=== PATIENT | female | born 1950 | race Caucasian/White ===

== ENCOUNTER 2020-04-13 16:20 | Emergency (ER) | payer OTHER, SELFPAY ==
[2020-04-13 16:26] VITALS: BP 181/84; PULSE 108; RESP 12; TEMP 35.9; O2SAT 98; BMI 19.3
[2020-04-13] MEDS: SODIUM CHLORIDE 0.9% 1,000 ML 1000 ML IV (17:40)
[2020-04-13 18:02] LABS: Add Manual Diff / Slide Review NO; Basophils Absolute Auto 100 /uL (0-100); Basophils Percent Auto 0.9 % (0-2); Eosinophils Absolute Auto 0 /uL (0-450); Eosinophils Percent Auto 0.4 % (2-4); Hematocrit 40.6 % (36-46); Lymphocytes Absolute Auto 1200 /uL (1100-4500); Lymphocytes Percent Auto 18.1 % (25-40); Mean Corpuscular HGB Conc 34.4 % (30-36); Mean Corpuscular Hemoglobin 30.8 PG (26-34); Mean Corpuscular Volume 89.6 fL (80-100); Monocytes Absolute Auto 400 /uL (0-900); Monocytes Percent Auto 5.9 % (3-14); Neutrophils Absolute Auto 5000 /uL (1500-7000); Neutrophils Percent Auto 74.7 % (50-75); Platelet Count 214 X10^3/uL (150-400); Red Blood Cell Count 4.53 X10^6/uL (4.0-5.2); Red Cell Distribution Width 12.9 % (11.6-14.8); White Blood Cell Count 6.7 X10^3/uL (4.5-11.0)
[2020-04-13 18:17] LABS: Prothrombin Time 11.5 SECONDS (10.1-12.7)
[2020-04-13 18:28] LABS: Alanine Aminotransferase 17 IU/L (<35); Albumin 4.5 g/dL (3.5-5.0); Albumin Globulin Ratio 1.4 (1.0-2.8); Alkaline Phosphatase 76 U/L (38-126); Aspartate Aminotransferase 26 IU/L (14-36); BUN Creatinine Ratio 22.9 (6-22); Bilirubin Total 0.4 mg/dL (0.2-1.3); Blood Urea Nitrogen 19 mg/dL (7-17); Calcium 9.5 mg/dL (8.4-10.2); Carbon Dioxide 27 mmol/L (22-32); Chloride 104 mmol/L (98-107); Estimated Glomerular Filt Rate > 60.0 mL/min (>60); Globulin 3.2 g/dL (1.7-4.1); Glucose 105 mg/dL (80-110); HEMOLYSIS < 15 (0-50); Potassium 4.2 mmol/L (3.4-5.1); Sodium 137 mmol/L (137-145); Total Protein 7.7 g/dL (6.3-8.2)
[2020-04-13 18:30] VITALS: BP 156/73; PULSE 89; RESP 12; O2SAT 98
--- NOTE | 2020-04-13 18:32 | ED_ITS ---
HPI - Headache General Chief Complaint: Headache Stated Complaint: HEAD ACHE NUMB TOUNGE Time Seen by Provider: 04/13/20 17:23 Source: patient Mode of arrival: Ambulatory Limitations: no limitations History of Present Illness HPI Narrative: 69F non smoker with history of hyperlipidemia presents with the chief complaint of a brief episode of right side tongue upon waking this morning at about 8:00 a.m.. She states that it was there upon waking and lasted about 1 hour. She denies any other neurologic symptoms whatsoever over the course of the day such as dizziness, lightheadedness, blurred vision, or unilateral numbness, weakness or tingling. She has had no chest pain or shortness of breath nor nausea, vomiting or diarrhea. She denies any abdominal pain. She is otherwise well and free of complaint. She denies any history of the same. She has had no recent injury or trauma. She denies any dietary or medication change Related Data Previous Rx's Medication Instructions Recorded LOVASTATIN (MEVACOR) 20 mg PO Q DAY #30 05/17/12 sulfamethoxazole-trimethoprim 1 tab PO BID #14 tab 11/24/12 Allergies Allergy/AdvReac Type Severity Reaction Status Date / Time AMOXICILLIN Allergy Mild THROAT Uncoded 04/13/20 16:33 TIGHTENING UP Review of Systems Constitutional Constitutional: Denies chills, Denies fatigue, Denies fever(s), Denies frequent falls, Denies lethargy and Denies weakness Eyes Eyes: Denies change in vision, Denies eye discharge, Denies irritation and Denies loss of vision ENT Ears, Nose, Mouth, and Throat: Denies change in voice, Denies dizziness, Denies neck pain, Denies sore throat and Denies throat swelling Cardiovascular Cardiovascular: Denies chest pain, Denies irregular heart rhythm, Denies lightheadedness, Denies palpitations, Denies dyspnea, Denies dyspnea on exertion and Denies orthopnea Respiratory Respiratory: Denies cough, Denies dyspnea, Denies dyspnea on exertion and Denies wheezing Gastrointestinal Gastrointestinal: Denies abdominal pain, Denies change in bowel habits, Denies diarrhea, Denies nausea and Denies vomiting Musculoskeletal Musculoskeletal: Denies neck pain and Denies numbness Integumentary/Breasts Skin/Breast: Denies pruritus, Denies erythema, Denies rash and Denies wounds Neurologic Neurologic: Denies behavioral changes, Denies confusion, Denies dizziness, Denies frequent falls, Denies loss of vision, Denies numbness, Reports sensory deficit and Denies weakness Psychiatric Psychiatric: Denies anxiety, Denies behavioral changes, Denies confusion, Denies depression, Denies homicidal ideation and Denies suicidal ideation Endocrine Endocrine: Denies fatigue, Denies flushing and Denies palpitations Hematologic/Lymphatic Hematologic/Lymphatic: Denies easy bruising Allergic/Immunologic Allergic/Immunologic: Denies urticaria, Denies throat swelling and Denies wheezing Patient History Social History Smoking Status: Never smoker Smoking Status: Never smoker Substance Use Type: does not use Exam Narrative Exam Narrative: GENERAL: [69] year old patient appears stated age. Well-nour ished, well-developed patient, in mild distress. HEAD: Atraumatic. Normocephalic. EYES: Pupils equal round and reactive. Extraocular motions intact. No scleral icterus. No injection or drainage. ENT: Nose without bleeding, purulent drainage. Throat without erythema, tonsillar hypertrophy or exudate. Airway patent. NECK: Trachea midline. Non tender CARDIOVASCULAR: Regular rate and rhythm without murmurs, gallops, or rubs. RESPIRATORY: Clear to auscultation. Breath sounds equal bilaterally. No wheezes, rales, or rhonchi. GASTROINTESTINAL: Abdomen soft, non-tender, nondistended. EXTREMITIES: No edema or joint tenderness. BACK: Nontender without deformity or crepitance. No flank tenderness. NEURO: AOx3. SKIN: No rash or erythema of visible areas NIH Stroke Scale 1a. LOC: Patient is alert and keenly responsive (0) 1b. LOC Questions: Patient answers both LOC questions accurately (0) 1c. LOC Commands: Patient performs both tasks correctly (0) 2. Best Gaze: Normal (0) 3. Visual: No visual loss (0) 4. Facial palsy: Normal symmetrical movements (0) 5. Motor arm: No drift (0) 6. Motor leg: No drift (0) 7. Limb ataxia: Absent (0) 8. Sensory: Normal (0) 9. Best language: No aphasia; normal (0) 10. Dysarthria: Normal (0) 11. Extinction and inattention: No abnormality (0) NIHSS: 0 Initial Vital Signs Initial Vital Signs: Vital Signs Temperature 96.6 F L 04/13/20 16:26 Pulse Rate 108 H 04/13/20 16:26 Respiratory Rate 12 04/13/20 16:26 Blood Pressure 181/84 H 04/13/20 16:26 Pulse Oximetry 98 04/13/20 16:26 Course Course Course Narrative: patient refused MRI. discussed very low likelihood of stroke with patient. Shared decision making results in decision to go home, follow up close with her PCP, return for recurrence or other neuro symptoms Orders Ordered: ED Orders 04/13/20 17:32 CT head/brain wo con Stat EKG-12 Lead Stat 04/13/20 17:45 Complete Blood Count AUTO DIFF Stat Comprehensive Metabolic Panel Stat Prothrombin Time INR Stat Discontinued Medications Sodium Chloride (Normal Saline 0.9%) 1,000 mls @ 1,000 mls/hr IV BOLUS ONE Stop: 04/13/20 18:27 Vital Signs Vital signs: Vital Signs - 8 hr 04/13/20 16:26 Temperature 96.6 F L Pulse Rate 108 H Respiratory Rate 12 Blood Pressure 181/84 H Pulse Oximetry 98 MDM - Headache Lab Data Result diagrams: 04/13/20 17:45 04/13/20 17:45 Labs: Lab Results 04/13/20 04/13/20 04/13/20 Range/Units 17:45 17:45 17:45 WBC 6.7 (4.5-11.0) X10^3/uL RBC 4.53 (4.0-5.2) X10^6/uL Hgb 14.0 (12.0-16.0) g/dL Hct 40.6 (36-46) % MCV 89.6 (80-100) fL MCH 30.8 (26-34) PG MCHC 34.4 (30-36) % RDW 12.9 (11.6-14.8) % Plt Count 214 (150-400) X10^3/uL Neut % (Auto) 74.7 (50-75) % Lymph % (Auto) 18.1 L (25-40) % Victoria % (Auto) 5.9 (3-14) % Eos % (Auto) 0.4 L (2-4) % Baso % (Auto) 0.9 (0-2) % Neut # (Auto) 5000 (8071-0390) /uL Lymph # (Auto) 1200 (6374-8052) /uL Victoria # (Auto) 400 (0-900) /uL Eos # (Auto) 0 (0-450) /uL Baso # (Auto) 100 (0-100) /uL PT 11.5 (10.1-12.7) SECONDS INR 1.0 (0.9-1.3) Sodium 137 (137-145) mmol/L Potassium 4.2 (3.4-5.1) mmol/L Chloride 104 (98-107) mmol/L Carbon Dioxide 27 (22-32) mmol/L BUN 19 H (7-17) mg/dL Creatinine 0.83 (0.52-1.04) mg/dL Estimated GFR > 60.0 (>60) mL/min BUN/Creatinine Ratio 22.9 H (6-22) Glucose 105 (80-110) mg/dL Calcium 9.5 (8.4-10.2) mg/dL Total Bilirubin 0.4 (0.2-1.3) mg/dL AST 26 (14-36) IU/L ALT 17 (<35) IU/L Alkaline Phosphatase 76 (38-126) U/L Total Protein 7.7 (6.3-8.2) g/dL Albumin 4.5 (3.5-5.0) g/dL Globulin 3.2 (1.7-4.1) g/dL Albumin/Globulin Ratio 1.4 (1.0-2.8) Discharge Plan Departure Patient Disposition: Home Clinical Impression: Paresthesia of tongue Instructions: DI for Numbness/Tingling Activity Restrictions/Additional Instructions: *You have been diagnosed with [brief episode of tongue paresthesia] *What to do: *Take medications as directed *Follow up with your primary care provider in 2-3 days, call for an flakita ointment. Let them know you were seen in the Emergency Department and that we ask that you be seen in follow up *Return to ER if you should have any new, worsening or concerning symptoms, such as [ recurrence of symptoms, development of other neurologic symptoms such as numbness, tingling, extremity weakness or other bothersome symptoms] Prescriptions: No Action LOVASTATIN (MEVACOR) 20 mg PO Q DAY Qty: 30 RF: 2 sulfamethoxazole-trimethoprim 800 MG/160 MG tablet 1 tab PO BID Qty: 14 RF: 0
== END 2020-04-13 18:45 | disposition home or self-care (01) ==
PROVIDERS: Emergency Provider Emergency Medicine
DX: R44.8 Other symptoms and signs involving general sensations and perceptions (principal); K14.8 Other diseases of tongue; R07.9 Chest pain, unspecified
CPT/HCPCS: 80053; 85025; 85610; 93005; 93010; 99283; 99284

== ENCOUNTER 2020-05-19 12:12 | Emergency (ER) | payer OTHER, SELFPAY ==
[2020-05-19 12:15] VITALS: BP 159/75; PULSE 97; RESP 15; TEMP 37.2; O2SAT 98
--- NOTE | 2020-05-19 12:31 | PC.NURSE ---
Pt states that in the past she was taking a lot of Ibuprofen for neck pain and the R side of her kati became numb. Pt came into the ER at that time and was worked up and sent home. Pt had stayed away from Ibuprofen since until yesterday and took two doses and then noticed the L side of her tongue became swollen and numb at 0930. Tongue has since become less swollen and almost back to baseline per pt report, no airway impairment. L side of tongue continues to feel numb
[2020-05-19 13:00] VITALS: BP 118/58; PULSE 68; O2SAT 97
--- NOTE | 2020-05-19 13:17 | ED.NEUROSD ---
HPI - Neuro Symptoms/Deficit General Chief Complaint: Neuro Symptoms/Deficit Stated Complaint: LEFT SIDE NUMB TOUNGE Time Seen by Provider: 05/19/20 12:39 Source: patient Mode of arrival: Ambulatory Limitations: no limitations History of Present Illness HPI Narrative: Patient is a 70-year-old female who presents with left tongue numbness and swelling. She states that this morning she noticed some left tongue numbness and swelling. She took a picture of it is obviously swollen she at no time had any difficulty breathing. He says that this actually happened before in March. She is post have an MRI and follow-up with Neurology he did not really have any other stroke like symptoms. No difficulty speaking no weakness numbness or tingling of extremities or face. She says that her tetanus feeling better I no longer see any swelling of her tongue. She thinks that she has been exposed to some new things but she is not sure what. She has 1 spot skin rash on her right leg that has been there for some time and seems to be improving she is post to follow up with Dermatology about it, but denies any other rash or itching. Onset (ago): hour(s) Location: other (Left tongue) Related Data Previous Rx's Medication Instructions Recorded LOVASTATIN (MEVACOR) 20 mg PO Q DAY #30 05/17/12 sulfamethoxazole-trimethoprim 1 tab PO BID #14 tab 11/24/12 Allergies Allergy/AdvReac Type Severity Reaction Status Date / Time amoxicillin Allergy Verified 05/19/20 12:20 Review of Systems Review of Systems ROS Unobtainable: All systems reviewed & are unremarkable except as noted in HPI and below Constitutional Constitutional: Denies chills, Denies fever(s), Denies lethargy and Denies weakness Eyes Eyes: Denies change in vision, Denies eye discharge, Denies irritation and Denies loss of vision ENT Ears, Nose, Mouth, and Throat: Reports as per HPI Cardiovascular Cardiovascular: Denies chest pain, Denies irregular heart rhythm, Denies lightheadedness, Denies palpitations and Denies orthopnea Gastrointestinal Gastrointestinal: Denies abdominal pain, Denies change in bowel habits, Denies diarrhea, Denies nausea and Denies vomiting Musculoskeletal Musculoskeletal: Denies back pain and Denies myalgias Integumentary/Breasts Skin/Breast: Reports as per HPI Neurologic Neurologic: Denies loss of vision and Denies weakness Endocrine Endocrine: Denies palpitations Patient History Medical History (Updated 05/19/20 @ 13:41 by Kelly Ribeiro DO) Hyperlipidemia Social History Smoking Status: Never smoker Smoking Status: Never smoker Substance Use Type: does not use Exam Initial Vital Signs Initial Vital Signs: Vital Signs Temperature 99.0 F 05/19/20 12:15 Pulse Rate 97 H 05/19/20 12:15 Respiratory Rate 15 05/19/20 12:15 Blood Pressure 159/75 H 05/19/20 12:15 Pulse Oximetry 98 05/19/20 12:15 GENERAL: Well-appearing, well-nourished and in no acute distress. HEENT: Head atraumatic,EOMI, pupils reactive, face symmetric, moist mucous membranes, no difficulty speaking no tongue swelling noted now, managing own secretions CARDIOVASCULAR: Regular rate and rhythm without murmurs, rubs or gallops. RESPIRATORY: Breath sounds equal bilaterally, no wheezes rales or rhonchi. EXTREMITIES: Normal range of motion, no clubbing or edema. Neurovascularly intact NEUROLOGICAL: Alert and oriented x4.Normal gait and speech. Cranial nerves II through XII grossly intact. Good [id number], good [id number], strength equal bilaterally, no dysarthria or aphasia, sensation in tact to soft touch bilaterally, no visual changes, no facial droop SKIN: Warm, dry, no laceration, no petechiae, no rashes or lesions. Scores NIH Stroke Scale Level of Conciousness: Alert, keenly responsive Ask month/age: Answers both questions correctly. Open/close eyes, close hand: Performs both tasks correctly Best gaze horizontal: Normal Visual borrego: No visual loss Facial palsy: Normal symetrical movement Left arm drift: No drift for full 10 sec Right arm drift: No drift for full 10 sec Left leg drift: No drift for full 5 sec Right leg drift: No drift for full 5 sec Limb ataxia: Absent Sensory on face/arms/legs: Normal, no sensory loss Best language: No aphasia, normal Dysarthria: Normal Extinction or inattention: No abnormality Total NIH Stroke scale score: 0 Course Orders Ordered: Discontinued Medications Prednisone (Prednisone 20 Mg Tablet) 20 mg PO NOW ONE Stop: 05/19/20 13:28 Last Admin: 05/19/20 13:43 Dose: 20 mg Documented by: MELISSA Vital Signs Vital signs: Vital Signs - 8 hr 05/19/20 12:15 05/19/20 13:00 05/19/20 13:30 Temperature 99.0 F Pulse Rate 97 H 68 82 Respiratory Rate 15 Blood Pressure 159/75 H 118/58 L 131/65 Pulse Oximetry 98 97 97 MDM - Neuro Symptoms/Deficit MDM Narrative Medical decision making narrative: Patient has no neurologic deficits. She has actually shown me a picture of her tongue that was obviously swollen think this is probably morbid allergic reaction rather than stroke. She has no other deficits. Is odd that it happened on the right side of her tongue and then again on the left side. She has appointment with Neurology and an MRI scheduled as an outpatient. At this time symptoms have improved will give her 1 dose of prednisone. Recommend allergy testing. Discharge Plan Departure Patient Disposition: Home Clinical Impression: Allergic reaction Instructions: Anaphylaxis Activity Restrictions/Additional Instructions: *You have been diagnosed with allergic reaction *What to do: Recommend allergy testing as an outpatient. Please continue neurology appointment and MRI as outpatient. I think symptoms are more related to an allergic reaction rather than stroke *Continue to take medications as directed Benadryl 25 mg every 6 hours if needed for help with sleep *Follow up with your primary care provider in 2-3 days *Return to ER if you should have increasing tongue swelling difficulty breathing difficulty swallowing rash lip swelling tongue swelling facial swelling, weakness numbness tingling or any new, worsening or concerning symptoms Prescriptions: No Action LOVASTATIN (MEVACOR) 20 mg PO Q DAY Qty: 30 RF: 2 sulfamethoxazole-trimethoprim 800 MG/160 MG tablet 1 tab PO BID Qty: 14 RF: 0
[2020-05-19 13:30] VITALS: BP 131/65; PULSE 82; O2SAT 97
[2020-05-19] MEDS: predniSONE 20 MG TABLET PO (13:43)
== END 2020-05-19 13:47 | disposition home or self-care (01) ==
PROVIDERS: Emergency Provider Emergency Medicine
DX: T78.40XA Allergy, unspecified, initial encounter (principal); R20.0 Anesthesia of skin
CPT/HCPCS: 99283

== ENCOUNTER → 2020-07-21 13:08 | Outpatient (CLI) | payer OTHER, SELFPAY ==
--- NOTE | 2020-07-21 | DI.CT.S_ITS ---
PROCEDURE: CT ANGIO ABDOMEN INDICATIONS: symptoms and signs involving the circulatory syste TECHNIQUE: After the administration of intravenous contrast, 2.5 mm sections acquired from the diaphragm to the iliac crests. 10 mm maximum intensity projection (MIP) coronal and sagittal reformats were then performed. For radiation dose reduction, the following was used: automated exposure control. COMPARISON: None. FINDINGS: Image quality: Excellent. Extravascular tissues: Lung bases are clear. Heart size is normal. Liver is normal in size and enhancement. Gallbladder is partially contracted . Biliary system is non dilated. Pancreas enhances normally. Spleen is normal in size and enhancement. No adrenal nodules. Kidneys are normal in size and enhancement, without hydronephrosis. Non-opacified bowel loops demonstrate normal wall thickness and caliber. No free fluid or air. No retroperitoneal or mesenteric adenopathy. No ventral hernias. No suspicious bony abnormalities. No vertebral body compression fractures. Abdominal aorta: There is moderate diffuse calcific plaque causing mild diffuse stenosis. No aneurysm nor dissection. Mesenteric arteries: The left gastric artery arises directly from the abdominal aorta, indicating a normal variant. There is a mild origin stenosis of the celiac artery. Superior mesenteric artery is patent. Inferior mesenteric artery is moderately stenotic at its origin. Renal arteries: Mild calcific origin stenosis of the bilateral renal arteries are present. Single bilateral renal arteries are present. IMPRESSION: 1. 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 2. No evidence of abdominal aortic aneurysm nor dissection. Dictated by: Felisa Loera M.D. on 07/22/2020 at 8:40 Approved by: Felisa Loera M.D. on 07/22/2020 at 8:43
== END ==
PROVIDERS: PCP Nurse Practitioner Family; Referring Provider Nurse Practitioner Family; Visit Provider Nurse Practitioner Family
DX: I70.1 Atherosclerosis of renal artery (principal); R09.89 Other specified symptoms and signs involving the circulatory and respiratory systems
CPT/HCPCS: 74175; Q9967

== ENCOUNTER → 2020-12-28 12:48 | Outpatient (CLI) | payer OTHER, SELFPAY | PROVIDERS: PCP Internal Medicine; Referring Provider Internal Medicine; Visit Provider Internal Medicine | DX: R05.3 Chronic cough (principal); Z53.8 Procedure and treatment not carried out for other reasons ==

== ENCOUNTER → 2020-12-31 11:32 | Outpatient (CLI) | payer OTHER, SELFPAY ==
--- NOTE | 2020-12-31 | DI.RAD.S_ITS ---
PROCEDURE: XR CHEST 2V INDICATIONS: CHRONIC COUGH TECHNIQUE: 2 views of the chest were acquired. COMPARISON: None. FINDINGS: Surgical changes and devices: None. Lungs and pleura: No consolidation, pleural effusions or pneumothorax. 4.9 mm nodular density in the right apex. Mediastinum: Mediastinal contours are normal. Heart size is normal. Bones and chest wall: No suspicious bony abnormalities. Soft tissues appear unremarkable. IMPRESSION: 1. No acute cardiopulmonary abnormality. 2. 4.9 mm nodular density in the right apex, which may represent a nodule or overlapping structures. Consider CT lung screening based on the patient's risk factors. Dictated by: Micah Hathaway M.D. on 12/31/2020 at 11:58 Approved by: Micah Hathaway M.D. on 12/31/2020 at 12:00
== END ==
PROVIDERS: PCP Internal Medicine; Referring Provider Internal Medicine; Visit Provider Internal Medicine
DX: R05.3 Chronic cough (principal); R91.1 Solitary pulmonary nodule
CPT/HCPCS: 71046

== ENCOUNTER → 2024-08-27 10:23 | Outpatient (CLI) | payer OTHER, SELFPAY ==
[2024-08-27 10:40] LABS: Add Manual Diff / Slide Review NO; Hematocrit 40.5 % (36-46); Hemoglobin 13.5 g/dL (12.0-16.0); Lymphocytes Absolute Auto 1400 /uL (1100-4500); Mean Corpuscular HGB Conc 33.4 % (30-36); Mean Corpuscular Hemoglobin 30.6 PG (26-34); Mean Corpuscular Volume 91.4 fL (80-100); Platelet Count 233 X10^3/uL (150-400)
[2024-08-27 11:05] LABS: Alanine Aminotransferase 23 IU/L (<35); Albumin 4.3 g/dL (3.5-5.0); Albumin Globulin Ratio 1.6 (1.0-2.8); Alkaline Phosphatase 64 U/L (38-126); Blood Urea Nitrogen 25 mg/dL (7-17); Calcium 9.5 mg/dL (8.4-10.2); Carbon Dioxide 24 mmol/L (22-32); Chloride 106 mmol/L (98-107); Cholesterol 265 mg/dL (140-199); Estimated Glomerular Filt Rate > 60 mL/min (>60); Globulin 2.7 g/dL (1.7-4.1); Glucose 94 mg/dL (70-99); HDL Cholesterol 88 mg/dL (40-60); HEMOLYSIS < 15 (0-50); Potassium 4.5 mmol/L (3.4-5.1); Sodium 138 mmol/L (137-145); Total Protein 7.0 g/dL (6.3-8.2); Triglycerides 113 mg/dL (35-150)
[2024-08-27 11:16] LABS: Free T4, Direct Thyroxine 1.31 ng/dL (0.78-2.19)
[2024-08-27 11:30] LABS: Thyroid Stimulating Hormone 2.52 uIU/mL (0.47-4.68)
[2024-08-27 12:41] LABS: Appearance Urine UA CLEAR; Bilirubin Urine UA NEGATIVE (NEGATIVE); Color Urine UA YELLOW; Glucose Urine UA NEGATIVE (Negative); Ketones Urine UA NEGATIVE (NEGATIVE); Leukocyte Esterase Urine UA NEGATIVE (NEGATIVE); Nitrite Urine UA NEGATIVE (Negative); Occult Blood Urine UA NEGATIVE (Negative); Protein Urine UA NEGATIVE (Negative); Specific Gravity Urine UA 1.020 (1.000-1.035); Urobilinogen Urine UA 0.2 E.U./dL (0.2)
[2024-08-27 12:56] LABS: pH Urine UA 5.5 (4.5-8.0)
[2024-08-27 12:58] LABS: Culture Indicated Urine Cult Not Indicated
== END ==
PROVIDERS: PCP Registered Nurse Diabetes Educator; Referring Provider Registered Nurse Diabetes Educator; Visit Provider Registered Nurse Diabetes Educator
DX: E78.5 Hyperlipidemia, unspecified (principal); R63.4 Abnormal weight loss; R03.0 Elevated blood-pressure reading, without diagnosis of hypertension
CPT/HCPCS: 36415; 80053; 80061; 81001; 84439; 84443; 85025